=== PATIENT | male | born 1980 | race Caucasian/White ===

== ENCOUNTER 2018-09-06 21:58 | Emergency (ER) | payer OTHER ==
[~2018-09-06] VITALS: Ht 180.3 cm; Wt 79.9 kg
[2018-09-06 22:39] LABS: ABSOLUTE EOSINOPHILS 0.1 thou/uL (0.0-0.7); ABSOLUTE LYMPHOCYTES 1.9 thou/uL (0.8-5.3); ABSOLUTE MONOCYTES 0.4 thou/uL (0.0-1.2); ABSOLUTE NEUTROPHILS 2.2 thou/uL (1.6-8.1); BASOPHILS 0.8 %; EOSINOPHILS 2.4 %; HEMOGLOBIN 13.6 gm/dL (14.0-18.0); LYMPHOCYTES 41.3 %; MCH 30.2 pg (26.0-34.0); MCHC 35.8 g/dL (28.0-37.0); MCV 84.6 fL (80.0-100.0); MONOCYTES 8.6 %; MPV 9.1 fl. (7.2-11.1); NUCLEATED RBCS 0 /100WBC; PLATELET COUNT* 148 thou/uL (150-400); POLYS 46.9 %; RBC 4.49 mil/uL (4.50-6.00); RDW-CV 12.7 % (10.5-14.5); WBC 4.7 thou/uL (4.0-11.0)
[2018-09-06 22:48] LABS: ANION GAP 8 mmol/L (7-16); BUN 15 mg/dL (7-18); CALCIUM 8.8 mg/dL (8.5-10.1); CHLORIDE 105 mmol/L (98-107); CO2 29 mmol/L (21-32); CREATININE 1.1 mg/dL (0.6-1.3); GLUCOSE 98 mg/dL (70-99); POTASSIUM 3.8 mmol/L (3.5-5.1); SODIUM 142 mmol/L (136-145)
[2018-09-06 22:49] LABS: INR 1.2; PROTIME 11.8 Seconds (9.20-11.50)
[2018-09-06 22:59] LABS: ALBUMIN 3.8 g/dL (3.4-5.0); ALKALINE PHOSPHATASE 65 U/L (46-116); LIPASE 179 U/L (73-393); NT-PRO BRAIN NAT PEPTIDE 82 pg/mL (<300); SGOT 22 U/L (15-37); SGPT 28 U/L (30-65); TOTAL BILIRUBIN 0.5 mg/dL (<0.1-1.0); TOTAL PROTEIN 6.3 g/dL (6.4-8.2); TROPONIN-I LEVEL <0.06 ng/mL (<0.06)
[2018-09-06 23:24] VITALS: BP 119/65
--- NOTE | 2018-09-07 16:59 | EKG ---
[place] [address] ELECTROCARDIOGRAM REPORT Name: DAVION RUIZ Room: [facility]#: [id number] Admission: 09/06/18 Attend Phys: Discharge: 09/06/18 Date of : 82 Report #: [id number] THIS REPORT FOR: //name// [facility] ED Test Date: 2018-09-06 Test Time: 22:02:41 Pat Name: DAVION RUIZ Department: Room: Gender: M [employer] Representatives: : 1980 Requested By: Jorge Moulton Order Number: [id number] MD: Destin Gross Measurements Intervals [place] Rate: 56 P: 36 [place]: 179 QRS: -24 QRSD: 107 T: 46 QT: 419 QTc: 405 Interpretive Statements Sinus rhythm Borderline left axis deviation RSR' in V1 or V2, probably normal variant ST elev, probable normal early repol pattern No previous ECG available for comparison Electronically Signed On 09-07-2018 16:59:28 CDT by Destin Gross [email or web address] <ELECTRONICALLY SIGNED> By: Destin Gross MD, [facility] 09/07/18 1659 01 01 Destin Gross MD, FAC /EPI
== END 2018-09-06 23:24 | disposition home or self-care (01) ==
LOC: M.ERS 21:58
PROVIDERS: Emergency Medicine
DX: R10.13 Epigastric pain (principal); R07.89 Other chest pain